=== PATIENT | female | born 1945 | race Two or more races ===

== ENCOUNTER 2019-03-15 17:05 | Emergency (ER) | payer MEDICARE, OTHER ==
[~2019-03-15] VITALS: Ht 144.8 cm; Wt 66.7 kg
[2019-03-15] MEDS ORDERED: LEVOTHYROXINE75 MCG ORAL (17:13)
[2019-03-15] MEDS ORDERED: ELIQUIS5 MG PO (17:13)
--- NOTE | 2019-03-15 17:24 | NUR ---
ED Nurse Note: pt came in with daughter from a md advice to go to ed for chest xray, pt denies pain. pt was sent by dr Montanez, pt was seen by antonella. will continue to monitor.
--- NOTE | 2019-03-15 17:24 | Emergency Room Report ---
History of Present Illness General Chief Complaint: General Complaint Source: Patient Present Illness HPI Patient is a 73-year-old female sent in by primary physician for chest x-ray. Patient had been scheduled for a knee replacement surgery. Patient had been coughing for 1 day. She denies any fever. She had prior history of rheumatoid arthritis. She denies any current medications other than medications for pain. Patient denies any increased leg swelling or productive cough. Allergies: Coded Allergies: No Known Allergies (Unverified , 03/15/19) Patient History Past Medical History: see triage record, other - Rheumatoid arthritis. Last Menstrual Period: 23 YEARS AGO Now: No Reviewed Nursing Documentation: PMH: Agreed; PSxH: Agreed Nursing Documentation-PMH Past Medical History: No History, Except For Hx Cardiac Problems: Yes - HYPERLIPIDEMIA, HYPOTHYROIDISM, DVT Review of Systems All Other Systems: negative except mentioned in HPI Physical Exam Vital Signs Date Time Temp Pulse Resp B/P (MAP) Pulse Ox O2 Delivery O2 Flow Rate FiO2 03/15/19 17:07 97.9 72 16 95 Room Air General Appearance: well appearing, alert, obese, Chronically Ill Head: normocephalic, atraumatic ENT: hearing grossly normal, normal voice Neck: full range of motion, supple Respiratory: lungs clear, no respiratory distress, speaking full sentences Cardiovascular #1: normal inspection, no edema Gastrointestinal: normal inspection Musculoskeletal: normal inspection, no calf tenderness Neurologic: normal inspection, alert, oriented x3, responsive, support team member III-XII nml as tested, normal gait Psychiatric: mood/affect normal Skin: no rash Medical Decision Making Diagnostic Impression: Primary Impression: Upper respiratory infection ER Course Patient presented for cough. Differential diagnosis include was not limited to pneumonia, bronchitis, pneumonitis among others. Patient has a benign exam and does not appear to require any laboratory testing at this time. Chest x-ray was ordered. Patient appears to be clinically stable for discharge.Patient was advised to follow-up with Dr. Montanez. Last Vital Signs Date Time Temp Pulse Resp B/P (MAP) Pulse Ox O2 Delivery O2 Flow Rate FiO2 03/15/19 17:07 97.9 72 16 95 Room Air Status: improved Disposition: HOME, SELF-CARE Condition: Stable Evin Mas MD March 15, 2019 17:24
--- NOTE | 2019-03-15 17:44 | NUR ---
ER DISCHARGE NOTE: Patient is cleared to be discharged per ERMD, pt is aox4, on room air, with stable vital signs. pt was given dc and prescription instructions, pt was able to verbalize understanding, pt id band removed without complications. pt is able to ambulate with steady gait. pt took all belongings.
--- NOTE | 2019-03-15 18:02 | Diagnostic Imaging Report ---
EXAM: XR Chest, 1 View CLINICAL HISTORY: PREOP TECHNIQUE: Frontal view of the chest. COMPARISON: No relevant prior studies available. FINDINGS: Lungs: Reduced lung volumes with basilar atelectasis/pneumonitis. Pleural space: Unremarkable. No pneumothorax. Heart: Unremarkable. No cardiomegaly. Mediastinum: Unremarkable. Bones/joints: No acute fracture. Abdomen: Surgical clips IMPRESSION: Reduced lung volumes with basilar atelectasis/pneumonitis. No confluent consolidation.
== END 2019-03-15 18:00 | disposition home or self-care (01) ==
LOC: EMR 17:46
DX: J06.9 Acute upper respiratory infection, unspecified (principal); E03.9 Hypothyroidism, unspecified; E78.5 Hyperlipidemia, unspecified; Z86.718 Personal history of other venous thrombosis and embolism
CPT/HCPCS: 71045; 99283